=== PATIENT | male | born 1955 | race Caucasian/White ===

== ENCOUNTER → 2021-06-14 | Outpatient (CLI) | payer OTHER ==
[2021-06-14 15:07] LABS: HEMOGLOBIN 13.3 gm/dl (14.0-17.5); RED BLOOD COUNT 4.49 M/UL (4.20-5.50)
[2021-06-14 15:29] LABS: BUN/CREATININE RATIO 6 (0-10)
== END ==
LOC: LAB 14:09
PROVIDERS: Family Medicine
DX: Z01.818 Encounter for other preprocedural examination (principal)
CPT/HCPCS: 36415; 71046; 80053; 85025; 85610; 85730; 93005

== ENCOUNTER 2021-12-11 17:10 | Emergency (ER) | payer OTHER ==
[2021-12-11 17:44] LABS: HEMOGLOBIN 12.4 gm/dl (14.0-17.5); RED BLOOD COUNT 4.23 M/UL (4.20-5.50); WHITE BLOOD COUNT 5.3 K/UL (4.5-11.0)
[2021-12-11 18:17] LABS: BUN/CREATININE RATIO 12 (0-10)
== END 2021-12-11 20:05 | disposition home or self-care (01) ==
LOC: ER1 17:10
PROVIDERS: Emergency Medicine; Nurse Practitioner
DX: I95.9 Hypotension, unspecified (principal); I10 Essential (primary) hypertension; Z79.899 Other long term (current) drug therapy
CPT/HCPCS: 71045; 80048; 80307; 81001; 82550; 82553; 83874; 84484; 85025; 99285